=== PATIENT | female | born 1980 | race Caucasian/White ===

== ENCOUNTER 2020-05-07 18:45 | Emergency (ER) | payer BC, MEDICAID ==
[~2020-05-07] VITALS: Ht 167.6 cm; Wt 87.0 kg
[2020-05-07 19:36] VITALS: BP 158/104
== END 2020-05-07 20:51 | disposition home or self-care (01) ==
LOC: ER 18:45
DX: M79.645 Pain in left finger(s) (principal); I10 Essential (primary) hypertension
CPT/HCPCS: 99284